=== PATIENT | male | born 1955 | race American Indian/Alaskan Native ===

== ENCOUNTER 2017-03-30 09:49 | Inpatient (IN) | payer MEDICARE ==
[2017-03-30 10:02] VITALS: BMI 30.7
[2017-03-30 10:40] LABS: BASO % 0.5 % (0.0-2.0); EOS # 0.2 K/uL (0.0-0.7); EOS % 3.1 % (0.0-4.0); HEMATOCRIT 35.3 % (35.0-51.0); LYMPH # 1.9 K/uL (1.0-4.3); LYMPH % 28.7 % (20.0-40.0); MEAN CELL VOLUME 96.7 fL (80.0-94.0); MEAN CORPUSCULAR HEMOGLOBIN 33.6 pg (27.0-31.0); MEAN CORPUSCULAR HGB CONC 34.7 g/dL (33.0-37.0); MEAN PLATELET VOLUME 8.3 fL (7.2-11.7); MONO # 0.6 K/uL (0.0-0.8); MONO % 9.4 % (0.0-10.0); WHITE BLOOD COUNT 6.7 K/uL (4.8-10.8)
[2017-03-30 10:42] LABS: RBC URINE < 1 /hpf (0-3); URINE BILIRUBIN NEGATIVE (NEGATIVE); URINE BLOOD NEGATIVE (NEGATIVE); URINE COLOR Yellow (YELLOW); URINE GLUCOSE (UA) NORMAL (Normal); URINE KETONE NEGATIVE (NEGATIVE); URINE LEUKOCYTE ESTERASE NEG Leu/uL (Negative); URINE PROTEIN NEGATIVE (NEGATIVE); WBC URINE < 1 /hpf (0-5)
[2017-03-30 10:52] LABS: ALCOHOL SERUM < 10 mg/dl (0-10); ALKALINE PHOSPHATASE 66 U/L (38-126); ALT/SGPT 23 U/L (21-72); AST/SGOT 20 U/L (17-59); BLOOD UREA NITROGEN 25 mg/dL (9-20); CALCIUM 8.7 mg/dl (8.6-10.4); CARBON DIOXIDE 29 mmol/L (22-30); CHLORIDE 102 mmol/L (98-107); GFR AFRICAN-AMERICAN 37; GLUCOSE,RANDOM 90 mg/dL (75-110); POTASSIUM 3.7 mmol/L (3.6-5.2); SODIUM 140 mmol/L (132-148); TOTAL PROTEIN 8.3 g/dL (6.3-8.3)
[2017-03-30] MEDS ORDERED: Aluminum Hydroxide/Magnesium Hydroxide Susp (30 mL) PO PRN (12:08)
--- NOTE | 2017-03-30 12:24 | C.PDOC ---
History Of Present Illness Patient is a 61 y/o male who presents to the ED requesting detox from opiates. Patient admits last use was today, via nose. Patient is currently prescreened with no withdrawal symptoms. No other physical complaints at this time. Time Seen by Provider: 03/30/17 10:14 Chief Complaint (Nursing): Substance Abuse History Per: Patient History/Exam Limitations: no limitations Onset/Duration Of Symptoms: Hrs (last use), Other (no withdrawal symptoms ) Current Symptoms Are (Timing): Still Present Modifying Factor(s): Other (opiates) Recent travel outside of the [place]: No Past Medical History Reviewed: Historical Data, Nursing Documentation, Vital Signs Vital Signs: Last Vital Signs Temp 98.2 F 03/30/17 14:18 Pulse 87 03/30/17 14:18 Resp 20 03/30/17 14:18 BP 154/125 H 03/30/17 14:18 Pulse Ox 100 03/30/17 14:18 - Medical History PMH: Arthritis (knees hands), CHF, COPD (dyspnea), Fractures (ANKLE FX,), HTN, Peripheral Edema (+1 pitting edema ble) Denies: Depression, Diabetes, Hepatitis, HIV, Chronic Kidney Disease, Seizures, Sexually Transmitted Disease Surgical History: Back Surgery - [facility] Procedures CORONAR ARTERIOGR-2 CATH (10/23/12) FLUOROSCOPY OF LEFT HEART USING LOW OSMOLAR CONTRAST (04/25/16) FLUOROSCOPY OF MULT COR ART USING L OSM CONTRAST (04/25/16) INJECT/INFUSE NEC (01/18/13) INTRODUCE OF OTH THERAP SUBST INTO RESP TRACT, VIA OPENING (04/25/16) LEFT HEART CARDIAC CATH (10/23/12) LT HEART ANGIOCARDIOGRAM (10/23/12) MEASURE OF CARDIAC SAMPL & PRESSURE, L HEART, PERC APPROACH (04/25/16) PERCUTANEOUS ABDOMINAL DRAINAGE (12/05/13) TETANUS TOXOID ADMINIST (12/31/04) Family History: States: No Known Family Hx - Social History Hx Tobacco Use: No Hx Alcohol Use: No Hx Substance Use: Yes (sniffs heroin) - Immunization History Hx Tetanus Toxoid Vaccination: No Hx Influenza Vaccination: No Hx Pneumococcal Vaccination: No Review Of Systems Psych: Positive for: Other (requesting detox). Negative for: Withdrawal Physical Exam - Physical Exam Appears: Well, Non-toxic, No Acute Distress Skin: Normal Color, Warm, Dry Head: Atraumatic, Normacephalic ED Course And Treatment - Laboratory Results Result Diagrams: 03/30/17 10:35 03/30/17 10:35 O2 Sat by Pulse Oximetry: 96 Medical Decision Making Medical Decision Making: Labs ordered and reviewed. In my clinical judgment patient is medically cleared and stable for psychiatric admission. cooler room worker contacted for evaluation. As per CW patient is to be admitted. DR Valencia accepts patient for detox. Disposition - Disposition Disposition: HOSPITALIZED Disposition Time: 11:40 Condition: STABLE - POA Present On Arrival: None - Clinical Impression Clinical Impression: Opioid use disorder, severe, dependence - Scribe Statement The provider has reviewed the documentation as recorded by the Scribe Belkis Peterson All medical record entries made by the Scribe were at my direction and personally dictated by me. I have reviewed the chart and agree that the record accurately reflects my personal performance of the history, physical exam, medical decision making, and the department course for this patient. I have also personally directed, reviewed, and agree with the discharge instructions and disposition. Decision To Admit - Pt Status Changed To: Hospital Disposition Of: Inpatient - Admit Certification Admit to Inpatient:: After my assessment, the patient will require hospitalization for at least two midnights. This is because of the severity of symptoms shown, intensity of services needed, and/or the medical risk in this patient being treated as an outpatient. - InPatient: Physician Admission Certification: I certify that this patient requires 2 or more midnights of care for the following reason:: Patient with opiate dependence accepted for detox - . Bed Request Type: Detox Admitting Physician: Giovani Valencia Patient Diagnosis: Opioid use disorder, severe, dependence
[2017-03-30] MEDS: Pantoprazole 40 mg EC Tab PO SCH (13:34)
[2017-03-30] MEDS ORDERED: Pneumococcal 23-Valent Vaccine IM ONE (14:08)
--- NOTE | 2017-03-30 14:10 | PCM.PSYCH ---
Initial Psychiatric Evaluation - Initial Psychiatric Evaluation Type of Admission: Voluntary Legal Status: Capacity Chief Complaint (in patient's own words): "My helped me come here. I need to stop this" History of Present Illness and Precipitating Events: The patient seen, chart reviewed and case discussed. This is 61-year-old -[place] male, with 4 children, lives with . He is on disability because of her back problem. The patient is here for heroin detox; using 10-20 bags intranasally for the past 20 years, on and off. He also uses OxyContin 4 times a day, 10 mg each, but he states he doesn't take it every day. He uses cocaine on and off and in the past he used Xanax 3-4 times a day, but no longer. He denies alcohol and he quit smoking 3 weeks ago. He was in detox 4 times in the past and rehabilitation once. He went to [facility] methadone clinic but he doesn't remember what year. Past psych history: Denies Medical history: Right shoulder injury, high blood pressure, CHF Family psych history: Denies Current Medications: Active Medications Generic Name Dose Route Start Last Admin Trade Name Freq PRN Reason Stop Dose Admin Al Hydrox/Mg Hydrox/Simethicone 30 ml 03/30/17 12:08 Maalox 30 Ml PO TID PRN Indigestion / Heartburn Aspirin 325 mg 03/30/17 12:15 03/30/17 13:49 Aspirin PO 325 mg DAILY BRIANA Administration Clonidine HCl 0.1 mg 03/30/17 12:08 03/30/17 13:36 Catapres PO 0.1 mg Q8 PRN Administration COWS Score More or Equal to 5 Furosemide 20 mg 03/30/17 12:15 03/30/17 13:51 Lasix PO 20 mg DAILY BRIANA Administration Gabapentin 100 mg 03/30/17 14:00 03/30/17 13:34 Neurontin PO 100 mg TID BRIANA Administration Hydrochlorothiazide 25 mg 03/30/17 12:15 03/30/17 13:50 Hydrodiuril PO 25 mg DAILY BRIANA Administration Loperamide HCl 2 mg 03/30/17 12:08 Imodium PO Q8 PRN Diarrhea Losartan Potassium 100 mg 03/30/17 12:15 03/30/17 13:50 Cozaar PO 100 mg DAILY BRIANA Administration Metoprolol Succinate 25 mg 03/30/17 18:00 Toprol Xl PO BID BRIANA Ondansetron HCl 4 mg 03/30/17 12:08 Zofran Tab PO Q8 PRN Nausea/Vomiting Pantoprazole Sodium 40 mg 03/30/17 12:15 03/30/17 13:34 Protonix Ec Tab PO 40 mg DAILY BRIANA Administration Pneumococcal Polyvalent Vaccine 0.5 ml 03/30/17 14:08 Pneumovax 23 Vaccine IM 03/30/17 14:09 .ONCE ONE Past Psychiatric History - Past Psychiatric History Previous Treatment History: None Pertinent Medical Hx (Current Medical&Sleep Prob, Allergies): Allergies Allergy/AdvReac Type Severity Reaction Status Date / Time No Known Allergies Allergy Verified 03/30/17 10:00 Valsartan [Diovan] 80 mg PO DAILY 09/25/16 Furosemide [Lasix] 20 mg PO DAILY 01/31/17 Metoprolol Succinate [Toprol XL] 25 mg PO BID 01/31/17 Aspirin 325 mg PO DAILY 03/30/17 Gabapentin [Neurontin] 100 mg PO TID 03/30/17 Losartan/Hydrochlorothiazide [Losartan-Hctz 100-25 mg Tab] 1 tab PO DAILY Meloxicam 15 mg PO DAILY 03/30/17 Pantoprazole [Protonix EC Tab] 40 mg PO DAILY 03/30/17 Review of Systems - Psychiatric Psychiatric: Abnormal Sleep Pattern, Anxiety. absent: Hallucinations, Homicidal Ideation, Suicidal Ideation Mental Status Examination - Personal Presentation Personal Presentation: Looks stated age - Affect Affect: Constricted - Motor Activity Motor Activity: Calm - Reliability in Providing Information Reliability in Providing Information: Good - Speech Speech: Organized - Mood Mood: Anxious - Formal Thought Process Formal Thought Process: No Impairment - Cognitive Functions Orientation: Person, Place, Situation, Time Sensorium: Alert Attention/Concentration: Attentive Estimate of Intelligence: Average Judgement: Intact, as evidence by: Insight regarding need for hospitalization Memory: Recent intact, as evidence by: Ability to recall events of the day, Remote intact, as evidenced by: Abilit to recall sig. 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
--- NOTE | 2017-03-30 14:29 | PCM.BM ---
<Chanell Smith - Last Filed: 03/30/17 14:27> Treatment Plan Problems - Problems identified on initial assessmt potential for opiates patsyrayu Date Initiated: 03/30/17 Time Initiated: 14:28 Assessment reference: NA Status: Active anxiety Date Initiated: 03/30/17 Time Initiated: 14:28 Assessment reference: NA Status: Active - Milieu Protocol Maintain good personal hygiene: daily Encourage regular showers, daily Remind patient to perform daily oral care, daily Assist patient to perform ADL's Conduct patient checks and document Observation sheet: Q15 minutes Maintain personal safety: every shift Educate patient to report safety concerns to staff, every shift Monitor environment for contraband/sharps Medication safety: Monitor for expected outcome, potential side effects: every shift, Assess barriers to learning: every shift, Assess readiness for medication education: every shift <Giovani Valencia - Last Filed: 03/30/17 15:09> - Diagnosis (1) Opioid use disorder, severe, dependence Status: Acute Interventions: 03/30/17 15:09 * Assess 7x/week regarding severity of withdrawal * Educate regarding risks, benefits, side effects and alternatives of medications * Use Motivational Interviewing for abstinence * Use CBT for relapse prevention * Medication management for withdrawal symptoms * Encourage medication assisted treatment *
[2017-03-30] MEDS: Metoprolol Succinate 25 mg XL Tab PO SCH (17:53)
[2017-03-31] MEDS: Pantoprazole 40 mg EC Tab PO SCH (10:28)
[2017-03-31] MEDS: Metoprolol Succinate 25 mg XL Tab PO SCH ×2 (10:28→17:19)
--- NOTE | 2017-03-31 12:38 | PCM.PYCHPN ---
Psychiatric Progress Note - Psychiatric Progress Note Patient seen today, length of contact: 17 minutes Patient Chief Complaint: "I have heroin withdrawal symptoms" Problems Identified/Issues Discussed: The pt is seen, chart reviewed, case discussed with staff. Pt reported opioid withdrawal symptoms, including diarrhea, nausea, hot and cold seating, felt like "Lousy." The pt is compliant with medications and reports no side-effects. Pt needs more time to stabilize. Pt denied any issues with sleep. He denied SI, HI, intent or plan. After care discussed, support and psychoeducation given. 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 Medication Change: Yes (Methadone taper for opioid detox) Medical Record Reviewed: Yes Mental Status Examination - Cognitive Function Orientation: Person, Place, Situation, Time Memory: Intact Attention: WNL Concentration: WNL Association: WNL Fund of Knowledge: WNL Decription of patient's judgement and insights: good/good - Mood Mood: Anxious - Affect Affect: Constricted - Speech Speech: Appropriate - Formal Thought Process Formal Thought Process: No Impairment Psychotic Thoughts and Behaviors: denied - Suicidal Ideation Suicidal Ideation: No - Homicidal Ideation Homicidal Ideation: No Goal/Treatment Plan - Goal/Treatment Plan Need for Continued Stay: Remain at risks for inpatient hospitalization, Discharge may exacerbated symptoms, Severe functional impairment Progress Toward Problem(s) and Goals/Treatment Plan: Start Methadone detox Gabapentin for augmentation As needed medications Attend groups and activities Supportive therapy and psychoeducation [place] for abstinence CBT for relapse prevention Encourage MAT Refer to rehab or IOP, and self-help groups Smoking cessation with [place] Medical consult if HTN is not controlled well Estimated Date of D/C: 04/04/17 - Smoking Cessation Smoking Cessation Initiated: Yes
[2017-04-01] MEDS: Metoprolol Succinate 25 mg XL Tab PO SCH ×2 (09:46→17:31)
[2017-04-01] MEDS: Pantoprazole 40 mg EC Tab PO SCH (09:46)
--- NOTE | 2017-04-01 12:28 | PCM.PYCHPN ---
Psychiatric Progress Note - Psychiatric Progress Note Patient seen today, length of contact: 17 minutes Patient Chief Complaint: "I am still withdrawing" Problems Identified/Issues Discussed: The pt is seen, chart reviewed, case discussed with staff. The pt is compliant with medications and reports no side-effects. Symptoms are improving but needs more time to stabilize. After care discussed, support and psychoeducation given. Medication Change: Yes (Methadone taper for opioid detox) Medical Record Reviewed: Yes Mental Status Examination - Cognitive Function Orientation: Person, Place, Situation, Time Memory: Intact Attention: WNL Concentration: WNL Association: WNL Fund of Knowledge: WNL - Mood Mood: Anxious - Affect Affect: Constricted - Speech Speech: Appropriate - Formal Thought Process Formal Thought Process: No Impairment - Suicidal Ideation Suicidal Ideation: No - Homicidal Ideation Homicidal Ideation: No Goal/Treatment Plan - Goal/Treatment Plan Need for Continued Stay: Remain at risks for inpatient hospitalization, Discharge may exacerbated symptoms, Severe functional impairment Progress Toward Problem(s) and Goals/Treatment Plan: Methadone or subutex detox Gabapentin for augmentation As needed medications Attend groups and activities Supportive therapy and psychoeducation [place] for abstinence CBT for relapse prevention Encourage MAT Refer to rehab or IOP, and self-help groups Smoking cessation with [place] Medical consult if HTN is not controlled well Estimated Date of D/C: 04/04/17
[2017-04-02] MEDS: Pantoprazole 40 mg EC Tab PO SCH (10:47)
[2017-04-02] MEDS: Metoprolol Succinate 25 mg XL Tab PO SCH ×2 (10:48→17:04)
--- NOTE | 2017-04-02 13:27 | PCM.PYCHPN ---
Psychiatric Progress Note - Psychiatric Progress Note Patient seen today, length of contact: 17 minutes Patient Chief Complaint: "I'm getting better" Problems Identified/Issues Discussed: The pt is seen, chart reviewed, case discussed with staff. Pt reported improvement in opioid withdrawal symptoms, including diarrhea, nausea, hot and cold seating, felt like "Lousy." The pt is compliant with medications and reports no side-effects. Pt needs more time to stabilize. Pt denied any issues with sleep. He denied SI, HI, intent or plan. After care discussed, support and psychoeducation given. DSM 5 Symptoms Update: opioid dependence, severe, withdrawal symptoms Medication Change: Yes (Methadone taper for opioid detox) Medical Record Reviewed: Yes Mental Status Examination - Cognitive Function Orientation: Person, Place, Situation, Time Memory: Intact Attention: WNL Concentration: WNL Association: WNL Fund of Knowledge: [facility] Decription of patient's judgement and insights: good/good Addtional comments: patient is calm and cooperative - Mood Mood: Neutral - Affect Affect: Constricted - Speech Speech: Appropriate - Formal Thought Process Formal Thought Process: No Impairment Psychotic Thoughts and Behaviors: denied patient is cooperative - Suicidal Ideation Suicidal Ideation: No Plan: denied - Homicidal Ideation Homicidal Ideation: No Plan: denied Goal/Treatment Plan - Goal/Treatment Plan Need for Continued Stay: Discharge may exacerbated symptoms, Severe functional impairment Progress Toward Problem(s) and Goals/Treatment Plan: Start Methadone detox Gabapentin for augmentation As needed medications Attend groups and activities Supportive therapy and psychoeducation [place] for abstinence CBT for relapse prevention Encourage MAT Refer to rehab or IOP, and self-help groups Smoking cessation with [place] Estimated Date of D/C: 04/04/17 - Smoking Cessation Smoking Cessation Initiated: Yes
[2017-04-03] MEDS: Metoprolol Succinate 25 mg XL Tab PO SCH ×2 (10:06→17:01)
[2017-04-03] MEDS: Pantoprazole 40 mg EC Tab PO SCH (10:06)
--- NOTE | 2017-04-03 15:59 | PCM.PYCHPN ---
Psychiatric Progress Note - Psychiatric Progress Note Patient seen today, length of contact: 15 minutes Patient Chief Complaint: I'm better. Problems Identified/Issues Discussed: Patient seen, chart reviewed, case discussed with the staff. Issues related to illness and treatment were discussed with the patient. Reported compliant with treatment with no adverse affects. Reported feeling better than before. Patient was awake alert oriented 3. Aftercare discussed with the patient. At the time of evaluation, patient had no delusions, no auditory or visual hallucinations, no suicidal ideations or homicidal. Medical Problems: Hypertension CHF Diagnostic Results: Reviewed DSM 5 Symptoms Update: Improving with treatment Medication Change: No Medical Record Reviewed: Yes Mental Status Examination - Cognitive Function Orientation: Person, Place, Situation, Time Memory: Intact Attention: WNL Concentration: WNL Association: WNL Fund of Knowledge: [facility] Decription of patient's judgement and insights: Fair - Mood Mood: Neutral - Affect Affect: Other (Appropriate) - Speech Speech: Appropriate - Formal Thought Process Formal Thought Process: No Impairment Psychotic Thoughts and Behaviors: None - Suicidal Ideation Suicidal Ideation: No - Homicidal Ideation Homicidal Ideation: No Goal/Treatment Plan - Goal/Treatment Plan Need for Continued Stay: Remain at risks for inpatient hospitalization, Discharge may exacerbated symptoms, Severe functional impairment Progress Toward Problem(s) and Goals/Treatment Plan: Patient education Supportive therapy CBT for relapse prevention Motivational interview for abstinence Continue treatment as before Patient does not want to go to any follow-up care after discharge from the hospital even after education. Estimated Date of D/C: 04/04/17 - Smoking Cessation Smoking Cessation Initiated: No
[2017-04-04 06:13] VITALS: RESP 18
[2017-04-04] MEDS: Metoprolol Succinate 25 mg XL Tab PO SCH (09:14)
[2017-04-04] MEDS: Pantoprazole 40 mg EC Tab PO SCH (09:14)
[2017-04-04 09:34] VITALS: BP 123/70; PULSE 78; TEMP 98.4; O2SAT 100
--- NOTE | 2017-04-04 10:10 | PCM.PYCHDC ---
Mental Status Examination - Mental Status Examination Orientation: Person, Place, Situation, Time Memory: Intact Mood: Neutral Affect: Broad Speech: Appropriate Attention: WNL Concentration: WNL Association: WNL Fund of Knowledge: WNL Formal Thought Process: No Impairment Description of patient's judgement and insight: good/good Psychotic Thoughts and Behaviors: denied patient is cooperative Suicidal Ideation: No Current Homicidal Ideation?: No Plan: denied intent or plan and has no access to guns. He denied any past suicide attempt. Discharge Summary - Discharge Note Reason for Hospitalization: This is 61-year-old -[place] male, with 4 children, lives with . He is on disability because of her back problem. The patient is here for heroin detox; using 10-20 bags intranasally for the past 20 years, on and off. He also uses OxyContin 4 times a day, 10 mg each, but he states he doesn't take it every day. He uses cocaine on and off and in the past he used Xanax 3-4 times a day, but no longer. He denies alcohol and he quit smoking 3 weeks ago. He was in detox 4 times in the past and rehabilitation once. He went to [facility] methadone clinic but he doesn't remember what year. Past psych history: Denies Medical history: Right shoulder injury, high blood pressure, CHF Family psych history: Denies Consultations:: List each consultation separately and include: 1. Reason for request. 2. Findings. 3. Follow-up Summary of Hospital Course include:: 1. Description of specific treatment plan utilized for patients during their course of treatmen. 2. Summarize the time- course for resolution of acute symptoms and/or regressed behaviors. 3. Describe issues identified and worked on during hospitalization. 4. Describe medication utilized. 5. Describe medical problems identified and treated. 6. Reassessment of suicide risk Summary of Hospital Course: The pt was admitted and started on treatment with psychotherapy, support, psychoeducation and medications. Pt reproted improvement in his Opiate withdrawal symptoms. He is motivated to stay sober. He has a good social support from his . [place] and CBT used. The pt attended groups and activities, as well as milieu therapy. All the risks and benefits of medications are discussed and the patient understood and agreed. The pt improved with the treatments provided. After care discussed with the patient. Time Spend 29 minutes - Diagnosis (1) Opioid withdrawal Status: Resolved (2) Cocaine use disorder, moderate, dependence Status: Resolved (3) Opioid use disorder, severe, dependence Status: Resolved - Final Diagnosis (DSM 5) Condition upon Discharge: STABLE Disposition: HOME/ ROUTINE Follow-up Treatment Plan: Please see F/U plan after discharge by KEILA Prescriptions/Medication Reconciliation: Gabapentin [Neurontin] 100 mg PO TID 30 Days #90 cap hydroCHLOROthiazide [Hydrodiuril] 25 mg PO DAILY 7 Days #7 tab traZODone [Desyrel] 100 mg PO HS PRN 30 Days #30 tab PRN Reason: Insomnia - Smoking Cessation Smoking Cessation Medication prescribed: Yes - Antipsychotic Medications Pt discharged on 2 or more routine antipsychotic medications: No
== END 2017-04-04 10:15 | disposition home or self-care (01) | DRG 895 ==
LOC: C.ER 09:49 → C.7D 11:41
PROVIDERS: ADMIT Psychiatry & Neurology Psychiatry; ATTEND Psychiatry & Neurology Psychiatry
PROC: HZ2ZZZZ Detoxification Services for Substance Abuse Treatment (ICD-10-PCS; principal; 2017-03-30)
PROC: HZ52ZZZ Individual Psychotherapy for Substance Abuse Treatment, Cognitive-Behavioral (ICD-10-PCS; 2017-03-30)
PROC: HZ59ZZZ Individual Psychotherapy for Substance Abuse Treatment, Supportive (ICD-10-PCS; 2017-03-30)
PROC: HZ56ZZZ Individual Psychotherapy for Substance Abuse Treatment, Psychoeducation (ICD-10-PCS; 2017-03-30)
DX: F11.23 Opioid dependence with withdrawal (principal); I11.0 Hypertensive heart disease with heart failure; F14.20 Cocaine dependence, uncomplicated; I50.9 Heart failure, unspecified; J44.9 Chronic obstructive pulmonary disease, unspecified; M17.0 Bilateral primary osteoarthritis of knee; F17.201 Nicotine dependence, unspecified, in remission

== ENCOUNTER 2017-10-19 17:13 | Inpatient (IN) | payer MEDICARE, OTHER ==
[2017-10-19 17:13] VITALS: BMI 31.0
[2017-10-19 17:43] LABS: SQUAMOUS EPITHIAL < 1 /hpf (0-5); URINE BILIRUBIN NEGATIVE (NEGATIVE); URINE BLOOD NEGATIVE (NEGATIVE); URINE CLARITY Clear (Clear); URINE COLOR Yellow (YELLOW); URINE GLUCOSE (UA) NORMAL (Normal); URINE LEUKOCYTE ESTERASE NEG Leu/uL (Negative); URINE PROTEIN NEGATIVE (NEGATIVE); URINE UROBILINOGEN NORMAL mg/dL (0.2-1.0)
[2017-10-19 17:47] LABS: BASO % 0.3 % (0.0-2.0); EOS # 0.1 K/uL (0.0-0.7); EOS % 2.1 % (0.0-4.0); HEMOGLOBIN 12.3 g/dL (12.0-18.0); LYMPH # 1.8 K/uL (1.0-4.3); LYMPH % 39.5 % (20.0-40.0); MEAN CELL VOLUME 94.8 fL (80.0-94.0); MEAN CORPUSCULAR HEMOGLOBIN 31.8 pg (27.0-31.0); MEAN CORPUSCULAR HGB CONC 33.5 g/dL (33.0-37.0); MEAN PLATELET VOLUME 7.5 fL (7.2-11.7); MONO # 0.4 K/uL (0.0-0.8); MONO % 8.5 % (0.0-10.0); NEUT # 2.3 K/uL (1.8-7.0); NEUT % 49.6 % (50.0-75.0); NRBC % 0.2 % (0.0-2.0); RBC 3.86 Mil/uL (4.40-5.90); RED CELL DISTRIBUTION WIDTH 13.9 % (11.5-14.5); WHITE BLOOD COUNT 4.6 K/uL (4.8-10.8)
--- NOTE | 2017-10-19 17:49 | C.PDOC ---
History Of Present Illness 62 y/o male with history of HTN presents to ED requesting detox from heroin. Patient reports he sniffs 10 bags of heroin daily and uses xanax daily. Patient denies SI/HI, history of withdrawal seizures or any other complaints at this time. Time Seen by Provider: 10/19/17 17:26 Chief Complaint (Nursing): Medical Clearance History Per: Patient History/Exam Limitations: no limitations Onset/Duration Of Symptoms: Days Current Symptoms Are (Timing): Still Present Past Medical History Reviewed: Historical Data, Nursing Documentation, Vital Signs Vital Signs: Last Vital Signs Temp 98 F 10/19/17 17:17 Pulse 85 10/19/17 17:17 Resp 18 10/19/17 17:17 BP 157/85 H 10/19/17 17:17 Pulse Ox 100 10/19/17 17:56 - Medical History PMH: Arthritis, Asthma, CHF, COPD, Fractures, HTN, Hypercholesterolemia, Peripheral Edema, Chronic Kidney Disease Surgical History: Back Surgery - [facility] CORONAR ARTERIOGR-2 CATH (10/23/12) DETOXIFICATION SERVICES FOR SUBSTANCE ABUSE TREATMENT (03/30/17) FLUOROSCOPY OF LEFT HEART USING LOW OSMOLAR CONTRAST (04/25/16) FLUOROSCOPY OF MULT COR ART USING L OSM CONTRAST (04/25/16) INDIV PSYCHOTHERAPY FOR SUBSTANCE ABUSE TREATMENT, SUPPORT (03/30/17) INDIV PSYCHOTHERAPY FOR SUBSTANCE ABUSE, COGNITIV BEHAVIORAL (03/30/17) INDIV PSYCHOTHERAPY FOR SUBSTANCE ABUSE, PSYCHOEDUCATION (03/30/17) INJECT/INFUSE NEC (01/18/13) INTRODUCE OF OTH THERAP SUBST INTO RESP TRACT, VIA OPENING (04/25/16) LEFT HEART CARDIAC CATH (10/23/12) LT HEART ANGIOCARDIOGRAM (10/23/12) MEASURE OF CARDIAC SAMPL & PRESSURE, L HEART, PERC APPROACH (04/25/16) PERCUTANEOUS ABDOMINAL DRAINAGE (12/05/13) TETANUS TOXOID ADMINIST (12/31/04) Family History: States: No Known Family Hx - Social History Hx Tobacco Use: No Hx Alcohol Use: No Hx Substance Use: Yes - Immunization History Hx Tetanus Toxoid Vaccination: No Hx Influenza Vaccination: No Hx Pneumococcal Vaccination: No Review Of Systems Constitutional: Negative for: Fever, Chills Gastrointestinal: Negative for: Nausea, Vomiting Neurological: Negative for: Weakness, Numbness Psych: Positive for: Other (Substance abuse). Negative for: Suicidal ideation, Withdrawal Physical Exam - Physical Exam Appears: Non-toxic, No Acute Distress Skin: Warm, Dry, No Rash Head: Atraumatic, Normacephalic Eye(s): bilateral: Normal Inspection Oral Mucosa: Moist Neck: Normal ROM, Supple Cardiovascular: Rhythm Regular Respiratory: Normal Breath Sounds, No Rales, No Rhonchi, No Wheezing Gastrointestinal/Abdominal: Soft, No Tenderness, No Guarding, No Rebound Extremity: Normal ROM, Capillary Refill (<2 seconds) Neurological/Psych: Oriented x3, Normal Speech, Normal Cognition ED Course And Treatment - Laboratory Results Result Diagrams: 10/19/17 17:44 10/19/17 17:44 O2 Sat by Pulse Oximetry: 100 (RA) Pulse Ox Interpretation: Normal Medical Decision Making Medical Decision Making: pt is medically cleared for detox admission. Disposition Discussed With DrVanessa: Bee Rodrigez Doctor Will See Patient In The: Hospital - Disposition Disposition: HOSPITALIZED Disposition Time: 18:23 Condition: GOOD Forms: [facility] (German) - Clinical Impression Clinical Impression: Opioid use disorder, severe, dependence - PA / RN TELEPHONIC / Resident Statement MD/DO has reviewed & agrees with the documentation as recorded. - Scribe Statement The provider has reviewed the documentation as recorded by the Darryl Torres All medical record entries made by the Darryl were at my direction and personally dictated by me. I have reviewed the chart and agree that the record accurately reflects my personal performance of the history, physical exam, medical decision making, and the department course for this patient. I have also personally directed, reviewed, and agree with the discharge instructions and disposition.
[2017-10-19 18:01] LABS: BARBITURATES, UR NEGATIVE (NEGATIVE); BENZODIAZEPINES, UR NEGATIVE (NEGATIVE); PHENCYCLIDINE, UR NEGATIVE (NEGATIVE)
[2017-10-19 18:07] LABS: ALB/GLOB RATIO 1.5 (1.0-2.1); ALBUMIN 4.2 g/dL (3.5-5.0); ALT/SGPT 34 U/L (21-72); AST/SGOT 19 U/L (17-59); BLOOD UREA NITROGEN 18 mg/dL (9-20); CALCIUM 9.1 mg/dl (8.6-10.4); GFR AFRICAN-AMERICAN 50; GFR NON-AFRICAN AMERICAN 41
[2017-10-19 18:21] LABS: OPIATES, UR POSITIVE (NEGATIVE)
[2017-10-20] MEDS ORDERED: Aluminum Hydroxide/Magnesium Hydroxide Susp (30 mL) PO PRN (06:28)
--- NOTE | 2017-10-20 06:29 | PCM.PSYCH ---
Initial Psychiatric Evaluation - Initial Psychiatric Evaluation Type of Admission: Voluntary Legal Status: Capacity Chief Complaint (in patient's own words): I came here to get help.' History of Present Illness and Precipitating Events: Pt is a 62 years old -[place] male, , came to the ED to get help in handling detox. He denies any past history of any inpatient psychiatric hospitalizations and denies any history of follow-up with any psychiatrist. Patient reports history of abusing 10-12 bags of heroin daily since his last detox admission six months ago at [facility]. Patient reports that soon after the last detox, he relapsed on heroin. Pt reported not being able to abstain despite attendance at Community [facility] Meetings and support from family and friends. Pt reported using two bags earlier today as to avoid opiod withdrawals inclusive of back pain, severe sweat and constipation. Pt appeared motivate and expressed interest in substance abuse aftercare at [facility]. Pt further articulated his willingness to comply with code of conduct rules and milieu activities set forth on the unit. He denies any suicidal ideation or any homicidal ideation. He denies any auditory or visual hallucinations or any psychosis. PMH HTN, Congestive Heart Failure. Current Medications: Active Medications Generic Name Dose Route Start Last Admin Trade Name Freq PRN Reason Stop Dose Admin Aspirin 81 mg 10/20/17 10:00 Ecotrin PO DAILY BRIANA Furosemide 20 mg 10/20/17 10:00 Lasix PO DAILY BRIANA Home Med 25 mg 10/20/17 10:00 Naloxegol Oxalate [Movantik] PO DAILY BRIANA Hydroxyzine HCl 25 mg 10/19/17 20:41 Atarax PO Q6 PRN Anxiety Losartan Potassium 100 mg 10/20/17 10:00 Cozaar PO DAILY BRIANA Metoprolol Succinate 25 mg 10/20/17 10:00 Toprol Xl PO BID BRIANA Tamsulosin HCl 0.4 mg 10/20/17 22:00 Flomax PO HS BRIANA Trazodone HCl 50 mg 10/19/17 20:42 Desyrel PO HS PRN Insomnia Past Psychiatric History - Past Psychiatric History Previous Treatment History: Inpatient Pertinent Medical Hx (Current Medical&Sleep Prob, Allergies): Allergies Allergy/AdvReac Type Severity Reaction Status Date / Time No Known Allergies Allergy Verified 10/19/17 17:15 Furosemide [Lasix] 20 mg PO DAILY 05/18/17 Valsartan [Diovan] 160 mg PO DAILY 05/18/17 Zolpidem [Ambien] 10 mg PO HS 05/18/17 oxyCODONE [oxyCODONE Immediate Release Tab] 15 mg PO 5XD PRN 05/18/17 Metoprolol Succinate XL [Toprol XL] 25 mg PO BID 07/23/17 Aspirin [Ecotrin] 81 mg PO DAILY #30 tabec 10/02/17 Naloxegol Oxalate [Movantik] 25 mg PO DAILY #30 tab 10/02/17 Tamsulosin [Flomax] 0.4 mg PO HS #30 cap 10/02/17 Review of Systems - Review of Systems All systems: reviewed and no additional remarkable complaints except - Psychiatric Psychiatric: Anxiety, Irritability. absent: Suicidal Ideation Mental Status Examination - Personal Presentation Personal Presentation: Looks stated age - Affect Affect: Constricted - Motor Activity Motor Activity: Calm - Reliability in Providing Information Reliability in Providing Information: Fair - Speech Speech: Organized - Mood Mood: Anxious - Formal Thought Process Formal Thought Process: No Impairment - Obsessions/Compulsions Obsessions: No Compulsions: No - Cognitive Functions Orientation: Person, Place, Time Sensorium: Alert Attention/Concentration: Attentive Abstract Thinking: [place] Estimate of Intelligence: Average Judgement: Imparied, as evidence by: Poor judgement, Intact, as evidence by: Insight regarding need for hospitalization - Risk Risk: Withdrawal, Diminished functioning - Strength & Assets Inventory Strength & Assets Inventory: Family support DSM 5 DX - DSM 5 DSM 5 Diagnosis: Opioid withdrawal Opioid use disorder severe Tobacco use disorder severe HTN Congestive Heart Failure. - Recommended/Plan of Treatment Treatment Recommendations and Plan of Treatment: Opioid withdrawal Opioid use disorder severe Tobacco use disorder severe HTN Congestive Heart Failure Taper with methadone Gabapentin for augmentation if needed As needed medications All risks, benefits and alternatives of the meds discussed, and the pt agreed and understood. Attend groups and activities Supportive therapy and psychoeducation IA for abstinence CBT for relapse prevention Encourage MAT Refer to rehab or IOP, and self-help groups Smoking cessation with IA Nicotine patch if needed
[2017-10-20] MEDS: Metoprolol Succinate 25 mg XL Tab PO SCH ×2 (09:53→18:16)
--- NOTE | 2017-10-20 21:07 | PCM.BM ---
<PriscillaKatelin - Last Filed: 10/20/17 21:05> Treatment Plan Problems - Problems identified on initial assessmt Potential for opiate withdrawal Date Initiated: 10/20/17 Time Initiated: 21:05 Assessment reference: NA Status: Active Treatment assets and liabiliti Patient Assests: cooperative, ADL independent, negotiates basic needs, cognitively intact Patient Liabilities: substance abuse, medical problems (CHF,COPD, HTN,CKD,PE , Arthritis, asthma) - Milieu Protocol Maintain good personal hygiene: daily Encourage regular showers, daily Remind patient to perform daily oral care, daily Assist patient to perform ADL's Conduct patient checks and document Observation sheet: Q15 minutes Maintain personal safety: every shift Educate patient to report safety concerns to staff, every shift Monitor environment for contraband/sharps Medication safety: Monitor for expected outcome, potential side effects: every shift, Assess barriers to learning: every shift, Assess readiness for medication education: every shift <Holly Lang - Last Filed: 10/24/17 09:05> Family Contact Family involvement: Eriky/SO not involved - Goals for Treatment Patient goals for treatment: Complete detox and transition to IOP. Discharge/Continuing Care - Education Needs Education Needs: Patient Medication, Patient Diagnosis/Disease Process, Patient Coping Skills, Patient Anger Management skills, Patient Placement options, Patient Community resources - Discharge Discharge Criteria: No longer exhibiting s/s of withdrawal, Reduction of target symptoms Discharge to:: Home, With Family - Treatment Team Participation Patient/Family/SO Statement: 10/24/17 09:05 I wanna go to the place across the [address] for IOP. Discussed with Family/SO: No Was Patient/Family/SO present at Treatment Team Meeting: Yes
[2017-10-21] MEDS: Metoprolol Succinate 25 mg XL Tab PO SCH ×2 (09:18→17:26)
--- NOTE | 2017-10-21 10:46 | PCM.PYCHPN ---
Psychiatric Progress Note - Psychiatric Progress Note Patient seen today, length of contact: 15 min Patient Chief Complaint: I am still withdrawing' Problems Identified/Issues Discussed: Patient seen and evaluated, chart reviewed and discussed with the nurse. He reports withdrawal symptoms including abdominal cramps, nausea, back pain, anxiety, and sweating. He denies any feelings of hopelessness or helplessness. He denies any suicidal ideation or homicidal ideation or any auditory or visual hallucinations. He is compliant with the medications and denies any side effects. Supportive therapy and psychoeducation were given. Medication Change: Yes (Methadone taper) Medical Record Reviewed: Yes Mental Status Examination - Cognitive Function Orientation: Person, Place, Time Memory: Intact Attention: WNL Concentration: Poor Association: WNL Fund of Knowledge: Poor - Mood Mood: Anxious - Affect Affect: Constricted - Speech Speech: Soft - Formal Thought Process Formal Thought Process: No Impairment - Suicidal Ideation Suicidal Ideation: No - Homicidal Ideation Homicidal Ideation: No Goal/Treatment Plan - Goal/Treatment Plan Need for Continued Stay: Severe depression anxiety, Severe functional impairment Progress Toward Problem(s) and Goals/Treatment Plan: Opioid withdrawal Opioid use disorder severe Tobacco use disorder severe HTN Congestive Heart Failure Taper with methadone Gabapentin for augmentation if needed As needed medications All risks, benefits and alternatives of the meds discussed, and the pt agreed and understood. Attend groups and activities Supportive therapy and psychoeducation ME for abstinence CBT for relapse prevention Encourage MAT Refer to rehab or IOP, and self-help groups Smoking cessation with ME Nicotine patch if needed
[2017-10-21] MEDS: Home Med 1 UNIT (Naloxegol Oxalate [Movantik] 25 MG) PO SCH ×2 (16:16→23:00)
[2017-10-22] MEDS: Metoprolol Succinate 25 mg XL Tab PO SCH ×2 (09:42→17:17)
--- NOTE | 2017-10-22 13:36 | PCM.PYCHPN ---
Psychiatric Progress Note - Psychiatric Progress Note Patient seen today, length of contact: 16 min Patient Chief Complaint: "Somewhat better" Problems Identified/Issues Discussed: The pt is seen, chart reviewed, case discussed with staff. Support and psychoeducation given, CBT and [place] used briefly No new symptoms reported, improving slowly and needs more time No SEs from medications, risks discussed. After care discussed Medication Change: Yes (Methadone taper) Medical Record Reviewed: Yes Mental Status Examination - Cognitive Function Orientation: Person, Place, Time Memory: Intact Attention: WNL Concentration: Poor Association: WNL Fund of Knowledge: Poor - Mood Mood: Anxious - Affect Affect: Constricted - Speech Speech: Soft - Formal Thought Process Formal Thought Process: No Impairment - Suicidal Ideation Suicidal Ideation: No - Homicidal Ideation Homicidal Ideation: No Goal/Treatment Plan - Goal/Treatment Plan Need for Continued Stay: Severe depression anxiety, Severe functional impairment Progress Toward Problem(s) and Goals/Treatment Plan: Continue medications Support and psychoeducation daily Attend groups and activities daily After care planning by SW - Smoking Cessation Smoking Cessation Initiated: Yes
[2017-10-23] MEDS: Metoprolol Succinate 25 mg XL Tab PO SCH ×2 (09:16→17:34)
--- NOTE | 2017-10-23 16:02 | PCM.PYCHPN ---
Psychiatric Progress Note - Psychiatric Progress Note Patient seen today, length of contact: 15 min Patient Chief Complaint: "feel pretty good" Problems Identified/Issues Discussed: The pt is seen, chart reviewed, case discussed with staff. Support and psychoeducation given, CBT and [place] used briefly No new symptoms reported, improving slowly and needs more time No SEs from medications, risks discussed. After care discussed Medication Change: Yes (Methadone taper) Medical Record Reviewed: Yes Mental Status Examination - Cognitive Function Orientation: Person, Place, Time Memory: Intact Attention: WNL Concentration: Poor Association: WNL Fund of Knowledge: Poor - Mood Mood: Anxious - Affect Affect: Constricted - Speech Speech: Soft - Formal Thought Process Formal Thought Process: No Impairment - Suicidal Ideation Suicidal Ideation: No - Homicidal Ideation Homicidal Ideation: No Goal/Treatment Plan - Goal/Treatment Plan Need for Continued Stay: Severe depression anxiety, Severe functional impairment Progress Toward Problem(s) and Goals/Treatment Plan: Continue medications Support and psychoeducation daily Attend groups and activities daily After care planning by KEILA
[2017-10-24 06:37] VITALS: PULSE 78; RESP 16; TEMP 98.4; O2SAT 97
--- NOTE | 2017-10-24 08:56 | PCM.PYCHDC ---
Mental Status Examination - Mental Status Examination Orientation: Person Discharge Summary - Discharge Note Consultations:: List each consultation separately and include: 1. Reason for request. 2. Findings. 3. Follow-up Summary of Hospital Course include:: 1. Description of specific treatment plan utilized for patients during their course of treatmen. 2. Summarize the time- course for resolution of acute symptoms and/or regressed behaviors. 3. Describe issues identified and worked on during hospitalization. 4. Describe medication utilized. 5. Describe medical problems identified and treated. 6. Reassessment of suicide risk Summary of Hospital Course: He will go to [facility] in [place] and consider suboxone MAT. - Final Diagnosis (DSM 5) Condition upon Discharge: GOOD Disposition: HOME/ ROUTINE Follow-up Treatment Plan: Continue medications Support and psychoeducation daily Attend groups and activities daily After care planning by KEILA Prescriptions/Medication Reconciliation: Aspirin [Ecotrin] 81 mg PO DAILY #30 tabec Furosemide [Lasix] 20 mg PO DAILY #30 tab Losartan [Cozaar] 100 mg PO DAILY #30 tab Metoprolol Succinate XL [Toprol XL] 25 mg PO BID #60 tab Tamsulosin [Flomax] 0.4 mg PO HS #30 cap traZODone [Desyrel] 50 mg PO HS PRN #30 tab PRN Reason: Insomnia
[2017-10-24 09:43] VITALS: BP 148/91
[2017-10-24] MEDS: Metoprolol Succinate 25 mg XL Tab PO SCH (09:43)
== END 2017-10-24 10:44 | disposition home or self-care (01) | DRG 895 ==
LOC: C.ER 17:13 → C.7D 18:22
PROVIDERS: ADMIT Psychiatry & Neurology Psychiatry; ATTEND Psychiatry & Neurology Psychiatry
PROC: HZ2ZZZZ Detoxification Services for Substance Abuse Treatment (ICD-10-PCS; principal; 2017-10-19)
PROC: HZ52ZZZ Individual Psychotherapy for Substance Abuse Treatment, Cognitive-Behavioral (ICD-10-PCS; 2017-10-19)
PROC: HZ59ZZZ Individual Psychotherapy for Substance Abuse Treatment, Supportive (ICD-10-PCS; 2017-10-19)
PROC: HZ56ZZZ Individual Psychotherapy for Substance Abuse Treatment, Psychoeducation (ICD-10-PCS; 2017-10-19)
PROC: HZ42ZZZ Group Counseling for Substance Abuse Treatment, Cognitive-Behavioral (ICD-10-PCS; 2017-10-19)
PROC: HZ46ZZZ Group Counseling for Substance Abuse Treatment, Psychoeducation (ICD-10-PCS; 2017-10-19)
DX: F11.23 Opioid dependence with withdrawal (principal); I13.0 Hypertensive heart and chronic kidney disease with heart failure and stage 1 through stage 4 chronic kidney disease, or unspecified chronic kidney disease; F17.200 Nicotine dependence, unspecified, uncomplicated; N18.9 Chronic kidney disease, unspecified; J44.9 Chronic obstructive pulmonary disease, unspecified; E78.00 Pure hypercholesterolemia, unspecified; I50.9 Heart failure, unspecified; F41.9 Anxiety disorder, unspecified; G47.00 Insomnia, unspecified